=== PATIENT | male | born 1990 | race Caucasian/White ===

== ENCOUNTER 2020-01-30 12:01 | Emergency (ER) | payer SELFPAY ==
[~2020-01-30] VITALS: Ht 182.9 cm; Wt 194.0 kg
[2020-01-30 12:43] LABS: BASOPHILS % (AUTO) 0 % (0-1); EOSINOPHILS % (AUTO) 0 % (1-7); LYMPHOCYTES % (AUTO) 13 % (22-44); MEAN CORPUSCULAR HEMOGLOBIN 29.7 pg (27.5-34.5); MEAN CORPUSCULAR HGB CONC 34.8 g/dL (33.2-36.2); MEAN PLATELET VOLUME 8.3 fL (7.4-10.4); MONOCYTES % (AUTO) 6 % (2-9); NEUTROPHILS % (AUTO) 80 % (42-75); PLATELET COUNT 324 x10^3/uL (130-400); RED CELL DISTRIBUTION WIDTH 13.1 % (9.4-14.8)
[2020-01-30 12:57] LABS: ALANINE AMINOTRANSFERASE 60 U/L (12-78); ANION GAP 8 mmol/L (5-15); BILIRUBIN,TOTAL 1.6 mg/dL (0.2-1.0); CHLORIDE 108 mmol/L (98-107); CREATININE 0.73 mg/dL (0.7-1.3)
[2020-01-30 12:58] LABS: ALBUMIN 4.1 g/dL (3.4-5.0); ALKALINE PHOSPHATASE 99 U/L (45-117); TOTAL PROTEIN 8.5 g/dL (6.4-8.2)
[2020-01-30 13:04] LABS: MD SCAN
--- NOTE | 2020-01-30 13:30 | NUR ---
PATIENT ROOMED FROM LOBBY.
[2020-01-30] MEDS ORDERED: SODIUM CHLORIDE FLUSH 10ML SYR IVF ONE (14:00)
[2020-01-30] MEDS ORDERED: ONDANSETRON 2MG/ML, 2ML IVPush ONE (14:00)
[2020-01-30] MEDS ORDERED: KETOROLAC 30 MG/1 ML IM ONE (14:00)
--- NOTE | 2020-01-30 14:00 | NUR ---
assumed care of pt. pt here c/o R groin pain radiating to lower back. pt denies recent heavy lifting or falls. denies recent new sexual partner. pt states that he has not been having painful urination, but that his urine output has decreased and his urine is very concentrated pt to ambulate to for urine sample
--- NOTE | 2020-01-30 14:20 | NUR ---
urine sample has been collected and sent. pt resting on gurney in position of comfort
[2020-01-30] MEDS ORDERED: KETOROLAC 60 MG/2 ML ONE (14:23)
[2020-01-30 14:49] LABS: MICROSCOPIC INDICATED
[2020-01-30 16:15] VITALS: BP 135/69
== END 2020-01-30 16:21 | disposition home or self-care (01) ==
LOC: ED 14:22
DX: N13.2 Hydronephrosis with renal and ureteral calculous obstruction (principal); R10.31 Right lower quadrant pain; R11.0 Nausea
CPT/HCPCS: 36415; 74176; 80053; 81001; 83690; 85025; 96372; 99284; J1885